=== PATIENT | female | born 1980 | race Hispanic/Latino ===

== ENCOUNTER → 2018-09-01 | Outpatient (REF) ==
[~2018-09-01] MED LIST: IBUPROFEN600 MG PO; IRON HIGH-POTE325 MG PO; LORTAB 7.57.5 MG PO; PRENATAL1 TA1 PO
== END | disposition home or self-care (01) | DRG 951 ==
LOC: DI 11:27
PROVIDERS: ATTEND Family Medicine
DX: Z20.1 Contact with and (suspected) exposure to tuberculosis (principal)